=== PATIENT | female | born 1990 | race Caucasian/White ===

== ENCOUNTER → 2023-05-16 08:42 | Outpatient (REF) | payer BC, SELFPAY | LOC: HWRAD 08:42 | PROVIDERS: ATTENDING PHYSICIAN Physician Assistant; FAMILY PHYSICIAN Family Medicine | DX: R10.11 Right upper quadrant pain (principal) | CPT/HCPCS: 76700 ==

== ENCOUNTER → 2024-09-25 12:53 | Outpatient (REF) | payer BC, SELFPAY | LOC: RAD 12:53 | PROVIDERS: ATTENDING PHYSICIAN Obstetrics & Gynecology | DX: Z31.41 Encounter for fertility testing (principal) | CPT/HCPCS: 58340; 74740 ==